=== PATIENT | female | born 1960 | race Hispanic/Latino ===

== ENCOUNTER 2017-03-23 08:00 | Outpatient (CLI) | payer BC | END 2017-03-23 08:01 | disposition home or self-care (01) | LOC: BICMAMMO 08:00 | DX: Z12.31 Encounter for screening mammogram for malignant neoplasm of breast (principal) | CPT/HCPCS: 77063; 77067; G0202 ==

== ENCOUNTER 2018-03-25 08:05 | Outpatient (CLI) | payer BC ==
--- NOTE | 2018-03-25 10:39 | BD ---
BONE DENSITOMETRY USING DEXA: HISTORY: Postmenopausal screening for osteoporosis. LUMBAR SPINE BMD (g/cm2) T-SCORE Z-SCORE L1 0.980 -0.1 1.2 L2 1.061 0.3 1.7 L3 1.023 -0.6 0.9 L4 0.938 -1.1 0.4 TOTAL 0.998 -0.4 1.0 NECK 0.721 -1.2 0.1 TOTAL 0.928 -0.1 0.8 The 10-year fracture risk for a major osteoporotic fracture is 6.7% and for a hip fracture 0.4%. IMPRESSION: Osteopenia. POS: [facility]
== END 2018-03-25 08:06 | disposition home or self-care (01) ==
LOC: BICMAMMO 08:05
DX: Z12.31 Encounter for screening mammogram for malignant neoplasm of breast (principal); Z13.820 Encounter for screening for osteoporosis; Z78.0 Asymptomatic menopausal state; M85.88 Other specified disorders of bone density and structure, other site
CPT/HCPCS: 77063; 77067; 77080

== ENCOUNTER 2018-08-23 14:37 | Outpatient (CLI) | payer BC ==
--- NOTE | 2018-08-23 15:05 | RAD ---
Skull 4 views HISTORY: Occipital lump. FINDINGS: Normal occipital protuberance. No aggressive osseous erosions or aggressive cranial exostos es. Sella is within normal limits. IMPRESSION: No significant abnormalities are demonstrated.
== END 2018-08-23 14:38 | disposition home or self-care (01) ==
LOC: BICRAD 14:37
PROVIDERS: ATTEND Family Medicine
DX: R93.0 Abnormal findings on diagnostic imaging of skull and head, not elsewhere classified (principal)
CPT/HCPCS: 36415; 70260; 80053; 85025; 85652

== ENCOUNTER 2018-08-26 14:04 | Outpatient (CLI) | payer BC ==
--- NOTE | 2018-08-26 14:58 | CT ---
CT OF HEAD NONCONTRAST: 08/26/18 CLINICAL INDICATION: Abnormal skull finding, weight loss. Reference made to radiographs 08/23/18. FINDINGS: There is no ventriculomegaly, mass, midline shift or acute intracranial hemorrhage. Physiologic basal ganglia calcifications are seen bilaterally. Scattered nonspecific mild areas of demineralization o f the calvarium are present although there is no aggressive lesion confirmed. No destruction of the i nner table or outer table of the calvarium identified. There is scattered paranasal sinus mucosal thi ckening. IMPRESSION: 1. No acute intracranial abnormalities. 2. No aggressive, destructive osseous lesion of the calvarium is evident. There is scattered non specific mild multifocal demineralization. POS: [facility]
== END 2018-08-26 14:05 | disposition home or self-care (01) ==
LOC: BICCT 14:04
PROVIDERS: ATTEND Family Medicine
DX: R63.4 Abnormal weight loss (principal); R93.0 Abnormal findings on diagnostic imaging of skull and head, not elsewhere classified; M81.0 Age-related osteoporosis without current pathological fracture
CPT/HCPCS: 70450

== ENCOUNTER 2018-11-15 12:49 | Outpatient (CLI) | payer BC ==
--- NOTE | 2018-11-15 14:17 | RAD ---
PA AND LATERAL CHEST: HISTORY: Other giant cell arteritis. COMPARISON: None. FINDINGS: The heart size is normal. The lungs are well expanded without lobar consolidation, pneumothoraces, o r pleural effusions. There are degenerative changes in the spine. IMPRESSION: No radiographic evidence of acute cardiopulmonary process. POS: [facility]
== END 2018-11-15 12:50 | disposition home or self-care (01) ==
LOC: BICRAD 12:49
PROVIDERS: ATTEND Internal Medicine Rheumatology
DX: M31.6 Other giant cell arteritis (principal)
CPT/HCPCS: 71046

== ENCOUNTER 2019-04-25 07:50 | Outpatient (CLI) | payer BC ==
--- NOTE | 2019-04-25 08:33 | MMO ---
Bilateral MAMMO Bilat Screen [facility]. CLINICAL HISTORY: Patient is 59 years old and is seen for screening. The patient has no family history of breast cancer. The patient has no personal history of cancer. VIEWS: The views performed were: bilateral craniocaudal with tomosynthesis and bilateral mediolateral oblique with tomosynthesis. FILMS COMPARED: The present examination has been compared to prior imaging studies performed at [facility] on 02/24/2015, 02/26/2016, 03/23/2017 and 03/25/2018. This study has been interpreted with the assistance of computer-aided detection. MAMMOGRAM FINDINGS: There are scattered fibroglandular densities. There are no suspicious masses, suspicious calcifications, or new areas of architectural distortion. IMPRESSION: THERE IS NO MAMMOGRAPHIC EVIDENCE OF MALIGNANCY. A ROUTINE FOLLOW-UP MAMMOGRAM IN 1 YEAR IS RECOMMENDED. THE RESULTS OF THIS EXAM WERE SENT TO THE PATIENT. ACR BI-RADS Category 1 - Negative MAMMOGRAPHY NOTE: 1. A negative mammogram report should not delay a biopsy if a dominant of clinically suspicious mass is present. 2. Approximately 10% to 15% of breast cancers are not detected by mammography. 3. Adenosis and dense breasts may obscure an underlying neoplasm. Reported by: VETO MATHIS MD Electonically Signed: [id number]
== END 2019-04-25 07:51 | disposition home or self-care (01) ==
LOC: BICMAMMO 07:50
PROVIDERS: ATTEND Family Medicine
DX: Z12.31 Encounter for screening mammogram for malignant neoplasm of breast (principal)
CPT/HCPCS: 77063; 77067

== ENCOUNTER 2020-05-03 08:00 | Outpatient (CLI) | payer BC | END 2020-05-03 08:01 | disposition home or self-care (01) | LOC: BICMAMMO 08:00 | PROVIDERS: ATTEND Family Medicine | DX: Z12.31 Encounter for screening mammogram for malignant neoplasm of breast (principal); Z13.820 Encounter for screening for osteoporosis; N95.9 Unspecified menopausal and perimenopausal disorder; M85.89 Other specified disorders of bone density and structure, multiple sites | CPT/HCPCS: 77063; 77067; 77080 ==

== ENCOUNTER 2021-05-28 09:04 | Outpatient (CLI) | payer BC | END 2021-05-28 09:05 | disposition home or self-care (01) | LOC: BICMAMMO 09:04 | PROVIDERS: ATTEND Family Medicine | DX: Z12.31 Encounter for screening mammogram for malignant neoplasm of breast (principal) | CPT/HCPCS: 77063; 77067 ==

== ENCOUNTER 2022-07-04 09:17 | Outpatient (CLI) | payer MEDICARE, BC | END 2022-07-04 09:18 | disposition home or self-care (01) | LOC: BICMAMMO 09:17 | PROVIDERS: ATTEND Family Medicine | DX: Z12.31 Encounter for screening mammogram for malignant neoplasm of breast (principal) | CPT/HCPCS: 77063; 77067 ==